=== PATIENT | female | born 1980 | race African-American/Black ===

== ENCOUNTER 2016-09-27 17:23 | Emergency (ER) | payer OTHER ==
[~2016-09-27] VITALS: Ht 172.7 cm; Wt 172.0 kg
[~2016-09-27 17:23] MED LIST: ATEN50 PO; GLUCTAB PO
[2016-09-27 17:25] VITALS: BP 172/92; PULSE 76; RESP 16; TEMP 99; O2SAT 96
--- NOTE | 2016-09-27 17:41 | PD ---
Physical Exam Time Seen by Provider: 17:40 Narrative 35 y/o female here with L lower chest pain for 2 days. Vital signs reviewed. Seen at triage desk. Awaiting bed placement. Data Data Last Documented VS Vital Signs Date Time Temp Pulse Resp B/P Pulse Ox O2 Delivery O2 Flow Rate FiO2 09/27/16 17:25 99.0 76 16 172/[address] [facility] Medical Record Reviewed: Yes Supervised Visit with SALONI: Taye Castillo September 27, 2016 17:41
[2016-09-27 20:10] VITALS: BP 162/77; PULSE 67; RESP 16; O2SAT 89
[2016-09-27] MEDS ORDERED: ULTR50TA5 PO (20:46)
[2016-09-27] MEDS ORDERED: IBUP800T23 PO (20:46)
--- NOTE | 2016-09-27 20:46 | PD ---
HPI . Left-sided chest pain Chief Complaint: Pain: Acute or Chronic Time Seen by Provider: 20:21 Travel History International Travel<30 days: No Contact w/Intl Traveler<30days: No Traveled to known affect area: No History of Present Illness HPI Patient presents with a 2 day history of left-sided chest pain. She states that it had been sharp but now is just sore. She states that he got better while she was waiting here to be seen. Pain intensity was initially a 5/10 but is now a 0/10. She states that the pain had been exacerbated by movement. PFSH Past Medical History Anxiety: Yes Chest Pain: Yes Diminished Hearing: No Hypertension: Yes Immunizations Current: No Tetanus Vaccination: Unknown Influenza Vaccination: No ?: Not LMP: 09/06/16 : 3 Para: 0 Miscarriage: 3 Past Surgical History Surgical History: No Previous Surgery Social History Alcohol Use: Yes (OCCASIONALLY) Tobacco Use: No Substance Use: No Allergies-Medications (Allergen,Severity, Reaction): Coded Allergies: No Known Allergies (Verified , 09/27/16) Reported Meds & Prescriptions Reported Meds & Active Scripts Active Reported Metformin (Metformin HCl) 500 Mg Tab 500 Mg PO BID Tenormin 50 Mg Tab (Atenolol) 50 Mg Tab 100 Mg PO BID Review of Systems Except as stated in HPI: all other systems reviewed are Neg Cardiovascular: Positive: Chest Pain or Discomfort Respiratory: No: Shortness of Breath Physical Exam Narrative GENERAL: Awake and alert and in no acute distress. SKIN: Warm and dry. HEAD: Atraumatic. Normocephalic. EYES: Pupils equal and round. Extraocular movements are intact. NECK: Trachea midline. Neck supple. CARDIOVASCULAR: Regular rate and rhythm. Heart sounds are normal. RESPIRATORY: No accessory muscle use. Lungs are clear with full air movement throughout. MUSCULOSKELETAL: No obvious deformities. No edema. NEUROLOGICAL: Awake and alert. No obvious cranial nerve deficits. Motor grossly within normal limits. Normal speech. PSYCHIATRIC: Appropriate mood and affect; insight and judgment normal. Data Data Last Documented VS Vital Signs Date Time Temp Pulse Resp B/P Pulse Ox O2 Delivery O2 Flow Rate FiO2 09/27/16 20:10 67 16 09/27/16 20:10 162/77 89 Room Air 09/27/16 17:25 99.0 Orders Electrocardiogram (09/27/16 ) [facility] Medical Decision Making Medical Screen Exam Complete: Yes Emergency Medical Condition: Yes Interpretation(s) EKG shows a normal sinus rhythm with no acute ischemic change. Differential Diagnosis Differential diagnosis of chest pain includes but is not limited to musculoskeletal pain, pulmonary embolism, acute coronary syndrome, pneumonia, pleurisy Narrative Course Patient presents with sharp left-sided chest pain which has now resolved. PERC score negative. Diagnosis Primary Impression: Chest wall pain Patient Instructions: Chest Wall Pain (ED), General Instructions Med/Other Pt SpecificInfo: Prescription(s) given Scripts Tramadol (Ultram)50 Mg Tab50 Mg PO Q4H PRN (PAIN) #12 TAB Ref 0 Prov:Mariah Live MD 09/27/16 Ibuprofen 800 Mg [id number] Mg PO Q8H PRN (Pain/Inflammation) #60 TAB Ref 0 Prov:Mariah Live MD 09/27/16 Disposition: 01 DISCHARGE HOME Condition: Stable Mariah Live MD September 27, 2016 20:46
--- NOTE | 2016-09-28 10:56 | EKG ---
Date Performed: 09/27/2016 Time Performed: 17:52:19 PTAGE: 35 years EKG: Sinus rhythm POSSIBLE LEFT ATRIAL ENLARGEMENT BORDERLINE ECG PREVIOUS TRACING : 01/22/2012 21.55 DOCTOR: Dominguez Dior Interpretating Date/Time 09/28/2016 10:54:26
== END 2016-09-27 21:00 | disposition home or self-care (01) ==
LOC: NEPD 17:23
DX: R07.89 Other chest pain (principal); I10 Essential (primary) hypertension; R94.31 Abnormal electrocardiogram [ECG] [EKG]
CPT/HCPCS: 93005